=== PATIENT | female | born 1995 | race Hispanic/Latino ===

== ENCOUNTER 2017-07-04 18:49 | Emergency (ER) | payer BC ==
[2017-07-04 19:38] LABS: BASO % 0.7 % (0.0-2.0); EOS # 0.2 K/uL (0.0-0.7); EOS % 3.9 % (0.0-4.0); HEMOGLOBIN 12.6 g/dL (11.0-16.0); LYMPH % 41.4 % (20.0-40.0); MEAN CORPUSCULAR HEMOGLOBIN 30.8 pg (27.0-31.0); MEAN CORPUSCULAR HGB CONC 34.8 g/dL (33.0-37.0); MEAN PLATELET VOLUME 8.8 fL (7.2-11.7); MONO # 0.4 K/uL (0.0-0.8); MONO % 7.9 % (0.0-10.0); NEUT # 2.2 K/uL (1.8-7.0); NEUT % 46.1 % (50.0-75.0); NRBC % 0.2 % (0.0-2.0); RBC 4.09 Mil/uL (3.80-5.20); RED CELL DISTRIBUTION WIDTH 12.9 % (11.5-14.5)
[2017-07-04 19:39] LABS: MEAN CELL VOLUME 88.3 fL (81.0-99.0); WHITE BLOOD COUNT 4.7 K/uL (4.8-10.8)
[2017-07-04 19:41] LABS: HCG,QUALITATIVE URINE NEGATIVE (NEGATIVE)
--- NOTE | 2017-07-04 19:44 | C.PDOC ---
History Of Present Illness Jasmin Bond is a 21 year old female, with a past medical history of bipolar disorder, who presents to the emergency department complaining of palpitations and shortness of breath onset for x1 day. Patient states she's been having trouble sleeping and feels anxious. Her heart feels like its pounding but when she takes her pulse its not fast. Patient states she feels like she can't catch a breath or take deep breaths. Patient is concerned about her breathing because she gets exposed to many chemicals while at work. Patient has been on Xanax 0.5mg but hasn't taken any in the last x2 days. She has a history of heavy menstrual cycles, she thought she was anemic and tried taking Iron. She denies any recent travel and is not on control. No further medical complaints. PMD: None provided. Time Seen by Provider: 07/04/17 19:01 Chief Complaint (Nursing): Anxiety History Per: Patient History/Exam Limitations: no limitations Onset/Duration Of Symptoms: Days (x1) Current Symptoms Are (Timing): Still Present Suicide/Self Injury Attempted (Context): None Associated Symptoms: Other (palpitations and SOB.) Recent travel outside of the [place]: No Past Medical History Reviewed: Historical Data, Nursing Documentation, Vital Signs Vital Signs: Last Vital Signs Temp 97.3 F L 07/04/17 18:57 Pulse 79 07/04/17 18:57 Resp 20 07/04/17 18:57 BP 93/61 L 07/04/17 18:57 Pulse Ox 100 07/04/17 19:48 - Medical History PMH: Anxiety, Bipolar Disorder Denies: Chronic Kidney Disease Surgical History: No Surg Hx Family History: States: Unknown Family Hx - Social History Hx Tobacco Use: Yes Hx Alcohol Use: Yes Hx Substance Use: No - Immunization History Hx Tetanus Toxoid Vaccination: No Hx Influenza Vaccination: Yes Hx Pneumococcal Vaccination: No Review Of Systems Cardiovascular: Positive for: Palpitations Respiratory: Positive for: Shortness of Breath Psych: Positive for: Anxiety Physical Exam - Physical Exam Appears: No Acute Distress, Other (anxious) Skin: Normal Color, Warm, Dry, No Pale Head: Atraumatic, Normacephalic Eye(s): bilateral: Normal Inspection, PERRL, EOMI Neck: Normal ROM Chest: Symmetrical Cardiovascular: Rhythm Regular Respiratory: Normal Breath Sounds, No Wheezing Gastrointestinal/Abdominal: Normal Exam, Soft, No Tenderness Extremity: Normal ROM, No Deformity, No Swelling Neurological/Psych: Oriented x3 Additional Physical Exam Comments: Patient was initially breathing fast but her breathing returned to normal and looked comfortable. Tachypnea comes and goes. ED Course And Treatment - Laboratory Results Result Diagrams: 07/04/17 19:33 07/04/17 19:33 Lab Interpretation: No Acute Changes ECG: Interpreted By Me ECG Rhythm: Sinus Rhythm, R BBB (incomplete) ECG Interpretation: No Acute Changes O2 Sat by Pulse Oximetry: 100 (RA) Pulse Ox Interpretation: Normal - Radiology CXR: Interpreted by Me CXR Interpretation: Yes: No Acute Disease Reevaluation Time: 20:35 Reassessment Condition: Improved (Patient is comfortable and breathing normally. ) Medical Decision Making Medical Decision Making: Initial Impression: Anxiety Initial Plan: --EKG --CMP --D DIMER --Chest one view [RAD] --HCG, Qualitative urine --Urinalysis --Reevaluation Disposition Counseled Patient/Family Regarding: Studies Performed, Diagnosis, Need For Followup, Rx Given - Disposition Referrals: [facility] [Outside] Disposition: HOME/ ROUTINE Disposition Time: 20:35 Condition: IMPROVED Prescriptions: Alprazolam [Xanax] 0.5 mg PO TID PRN #10 tab PRN Reason: Anxiety Instructions: Anxiety, Adult (DC) Forms: [facility] (Malay) - Clinical Impression Clinical Impression: Anxiety - Scribe Statement Lemuel Browning
[2017-07-04 19:51] LABS: URINE BILIRUBIN NEGATIVE (NEGATIVE); URINE BLOOD NEGATIVE (NEGATIVE); URINE CLARITY Clear (Clear); URINE GLUCOSE (UA) NORMAL (Normal); URINE LEUKOCYTE ESTERASE NEG Leu/uL (Negative); URINE PROTEIN NEGATIVE (NEGATIVE); URINE UROBILINOGEN NORMAL mg/dL (0.2-1.0)
[2017-07-04 19:52] LABS: BLOOD UREA NITROGEN 10 mg/dL (7-17)
[2017-07-04 19:53] LABS: ALB/GLOB RATIO 1.7 (1.0-2.1); ALBUMIN 4.4 g/dL (3.5-5.0); ALT/SGPT 22 U/L (9-52); AST/SGOT 15 U/L (14-36); CALCIUM 8.4 mg/dl (8.6-10.4); GFR AFRICAN-AMERICAN > 60; GFR NON-AFRICAN AMERICAN > 60
[2017-07-04 20:00] LABS: SQUAMOUS EPITHIAL < 1 /hpf (0-5); URINE BACTERIA RARE (<OCC)
[2017-07-04 20:02] LABS: URINE COLOR Straw (YELLOW)
[2017-07-04 20:43] VITALS: BP 91/58; PULSE 68; RESP 18; TEMP 98.2; O2SAT 98
--- NOTE | 2017-07-05 07:41 | RAD ---
Chest x-ray single frontal view History: Shortness of breath. Comparison: None available. Findings: No focal infiltrate or effusion. Heart size within normal limits. Bibasilar breast nipple shadows. Impression: No focal infiltrate or effusion.
--- NOTE | 2017-07-06 09:04 | CARD ---
APPROVED REPORT EKG Measurement Heart [id number] <Conclusion> Normal sinus rhythm Incomplete right bundle branch block Borderline ECG
== END 2017-07-04 20:44 | disposition home or self-care (01) ==
LOC: C.ER 18:49
DX: F41.9 Anxiety disorder, unspecified (principal); F31.9 Bipolar disorder, unspecified